=== PATIENT | female | born 1940 | race Caucasian/White ===

== ENCOUNTER 2018-03-03 09:46 | Inpatient (IN) ==
[~2018-03-03 09:46] MED LIST: ASPIRIN 325 MG TABLET PO ONE; DIAZEPAM 5 MG TABLET PO ONE; MAGNESIUM SULF RIDER 2 GM in PREMIX 1 EACH IV PRN; diphenhydrAMINE CAP 25 MG CAPSULE PO ONE
[2018-03-03] MEDS ORDERED: ASPIRIN 325 MG TABLET ONE (10:33)
[2018-03-03] MEDS ORDERED: diphenhydrAMINE CAP 25 MG CAPSULE ONE (10:33)
[2018-03-03] MEDS ORDERED: DIAZEPAM 5 MG TABLET ONE (10:34)
[2018-03-03] MEDS: SODIUM CHLORIDE 0.9% 1,000 ML IV SCH ×3 (10:36→23:00)
[2018-03-03] MEDS ORDERED: LIDOCAINE 1% 20 ML VIAL ONE (15:03)
[2018-03-03] MEDS ORDERED: HYDROmorphone 2 MG/1 ML VIAL ONE (15:10)
[2018-03-03] MEDS ORDERED: MIDAZOLAM 2 MG/2 ML VIAL ONE (15:10)
[2018-03-03] MEDS ORDERED: VERAPAMIL 5 MG/2 ML VIAL ONE (15:16)
[2018-03-03] MEDS ORDERED: NITROGLYCERIN DRIP 50 MG/250 ML BOTTLE IV ONE (15:16)
[2018-03-03] MEDS ORDERED: ENOXAPARIN 60 MG/0.6 ML SYRINGE ONE (15:18)
[2018-03-03] MEDS ORDERED: NITROGLYCERIN SL 0.4 MG TABLET SL PRN (15:44)
[2018-03-03] MEDS ORDERED: ONDANSETRON 4 MG/2 ML VIAL IV PRN (15:44)
[2018-03-03] MEDS ORDERED: ACETAMINOPHEN 325 MG TABLET PO PRN (15:44)
[2018-03-03] MEDS ORDERED: ZALEPLON 5 MG CAPSULE PO PRN (21:00)
[2018-03-03] MEDS: SIMVASTATIN 40 MG TABLET PO SCH (21:31)
[2018-03-03] MEDS: CARVEDILOL 3.125 MG TABLET PO SCH (21:31)
[2018-03-04 04:12] LABS: Basophils # 0.1 10*3/uL (0.0-0.2); Basophils % 0.9 % (0.0-0.8); Eosinophils # 0.2 10*3/uL (0.0-0.87); Eosinophils % 4.4 % (0.00-10.9); Hematocrit 36.6 VOL% (35.7-47.0); Hemoglobin 12.1 GM/DL (12.0-16.0); Immature Granulocytes % 0.2 %; Immature Granulocytes Absolute 0.01 #; Lymphocytes % 36.2 % (21.3-54.2); Mean Corpuscular HGB Conc 33.1 GM/DL (32-36); Mean Corpuscular Hemoglobin 30 PG (27-34); Mean Platelet Volume 10.1 FL (9.6-12.0); Monocytes # 0.7 10*3/uL (0.11-0.8); Monocytes % 13.3 % (1.7-12.7); Neutrophils # 2.4 10*3/uL (1.4-7.4); Platelet Count 323 T/CUMM (130-400); Red Blood Count 4.02 MC/CUMM (3.8-5.5); Red Cell Distribution Width 12.7 % (9.3-17.3); White Blood Count 5.4 T/CUMM (4-12)
[2018-03-04 04:38] LABS: Blood Urea Nitrogen 11 MG/DL (7-18); Calcium 8.2 MG/DL (8.5-10.1); Glucose 97 MG/DL (74-106); Osmolality,Calculated 277.4 MOS/KG (273-304); Potassium 3.3 MMOL/L (3.5-5.1); Sodium 140 MMOL/L (136-145)
[2018-03-04 04:40] LABS: Troponin I 0.071 NG/ML (0.00-0.045)
[2018-03-04] MEDS: SODIUM CHLORIDE 0.9% 1,000 ML IV SCH (05:47)
[2018-03-04] MEDS: POTASSIUM CHLORIDE RIDER 10 MEQ in PREMIX 1 EACH IV PRN ×2 (06:50→09:10)
[2018-03-04] MEDS ORDERED: ASPIRIN CHEW 81 MG TABLET PO SCH (09:00)
[2018-03-04] MEDS: PANTOPRAZOLE 40 MG TABLET PO SCH (09:58)
[2018-03-04] MEDS: SERTRALINE 50 MG TABLET PO SCH (09:58)
[2018-03-04] MEDS: CARVEDILOL 3.125 MG TABLET PO SCH ×2 (09:58→16:50)
[2018-03-04] MEDS: amLODIPine 5 MG TABLET PO SCH (09:58)
[2018-03-04] MEDS: ISOSORBIDE MONONITRATE 30 MG TABLET PO SCH (09:59)
[2018-03-04] MEDS: ENOXAPARIN 40 MG/0.4 ML SYRINGE SUBCUT SCH (11:57)
[2018-03-04] MEDS ORDERED: ASPIRIN CHEW 81 MG TABLET PO ONE (17:09)
[2018-03-04] MEDS ORDERED: POTASSIUM CHLORIDE 20 MEQ PACK PO ONE (17:16)
[2018-03-04] MEDS ORDERED: ENOXAPARIN 40 MG/0.4 ML SYRINGE SUBCUT SCH (21:00)
[2018-03-04] MEDS: SIMVASTATIN 40 MG TABLET PO SCH (21:45)
[2018-03-05 05:19] LABS: Albumin 2.8 G/DL (3.4-5.0); Calcium 8.5 MG/DL (8.5-10.1); Osmolality,Calculated 282.3 MOS/KG (273-304); Total Protein 6.4 G/DL (6.4-8.3)
[2018-03-05] MEDS: SERTRALINE 50 MG TABLET PO SCH (09:43)
[2018-03-05] MEDS: ISOSORBIDE MONONITRATE 30 MG TABLET PO SCH (09:44)
[2018-03-05] MEDS: PANTOPRAZOLE 40 MG TABLET PO SCH (09:44)
[2018-03-05] MEDS: ASPIRIN CHEW 81 MG TABLET PO SCH (09:44)
[2018-03-05] MEDS: CARVEDILOL 3.125 MG TABLET PO SCH ×2 (09:44→16:30)
[2018-03-05] MEDS: amLODIPine 5 MG TABLET PO SCH (09:44)
[2018-03-05] MEDS: ENOXAPARIN 40 MG/0.4 ML SYRINGE SUBCUT SCH (11:50)
[2018-03-05] MEDS: SIMVASTATIN 40 MG TABLET PO SCH (19:59)
[2018-03-05] MEDS: ACETAMINOPHEN 325 MG TABLET PO SCH (22:48)
[2018-03-06] MEDS: PANTOPRAZOLE 40 MG TABLET PO SCH (08:38)
[2018-03-06] MEDS: ASPIRIN CHEW 81 MG TABLET PO SCH (08:38)
[2018-03-06] MEDS: ISOSORBIDE MONONITRATE 30 MG TABLET PO SCH (08:38)
[2018-03-06] MEDS: ACETAMINOPHEN 325 MG TABLET PO SCH ×2 (08:39→21:20)
[2018-03-06] MEDS: SERTRALINE 50 MG TABLET PO SCH (08:39)
[2018-03-06] MEDS: amLODIPine 5 MG TABLET PO SCH (08:39)
[2018-03-06] MEDS: CARVEDILOL 3.125 MG TABLET PO SCH ×2 (08:39→16:39)
[2018-03-06] MEDS: EZETIMIBE 10 MG TABLET PO SCH (12:31)
[2018-03-06] MEDS: ENOXAPARIN 40 MG/0.4 ML SYRINGE SUBCUT SCH (12:31)
[2018-03-06] MEDS ORDERED: MAGNESIUM HYDROXIDE SUSP 30 ML UDCUP PO PRN (18:23)
[2018-03-06] MEDS: SIMVASTATIN 40 MG TABLET PO SCH (21:20)
[2018-03-07 05:15] LABS: Basophils # 0.1 10*3/uL (0.0-0.2); Eosinophils # 0.3 10*3/uL (0.0-0.87); Eosinophils % 5.7 % (0.00-10.9); Hematocrit 39.7 VOL% (35.7-47.0); Immature Granulocytes % 0.2 %; Immature Granulocytes Absolute 0.01 #; Lymphocytes # 1.9 10*3/uL (1.4-4.0); Mean Corpuscular HGB Conc 32.7 GM/DL (32-36); Mean Corpuscular Hemoglobin 30 PG (27-34); Mean Corpuscular Volume 92.3 FL (87-102); Mean Platelet Volume 10.2 FL (9.6-12.0); Monocytes # 0.7 10*3/uL (0.11-0.8); Monocytes % 13.6 % (1.7-12.7); Neutrophils # 2.2 10*3/uL (1.4-7.4); Neutrophils % 42.5 % (38.7-73.9); Platelet Count 353 T/CUMM (130-400); Red Cell Distribution Width 12.8 % (9.3-17.3); White Blood Count 5.2 T/CUMM (4-12)
[2018-03-07 05:23] LABS: Calcium 8.7 MG/DL (8.5-10.1); Osmolality,Calculated 280.4 MOS/KG (273-304); Potassium 3.9 MMOL/L (3.5-5.1)
[2018-03-07] MEDS ORDERED: CEFUROXIME INJ 1,500 MG in SYRINGE 1 EACH IV ONE (07:49)
[2018-03-07] MEDS ORDERED: DEXTROSE 50% 25 GM/50 ML SYRINGE IV PRN (07:49)
[2018-03-07] MEDS ORDERED: GLUCAGON 1 MG VIAL IM PRN (07:49)
[2018-03-07] MEDS: ASPIRIN CHEW 81 MG TABLET PO SCH (08:52)
[2018-03-07] MEDS: EZETIMIBE 10 MG TABLET PO SCH (08:52)
[2018-03-07] MEDS: ISOSORBIDE MONONITRATE 30 MG TABLET PO SCH (08:53)
[2018-03-07] MEDS: SERTRALINE 50 MG TABLET PO SCH (08:53)
[2018-03-07] MEDS: LOSARTAN 25 MG TABLET PO SCH (08:53)
[2018-03-07] MEDS: CHLORHEXIDINE 0.12% ORAL RINSE 60 ML BOTTLE SWISH/SPIT SCH ×2 (08:53→21:50)
[2018-03-07] MEDS: CARVEDILOL 3.125 MG TABLET PO SCH ×2 (08:53→17:30)
[2018-03-07] MEDS: ACETAMINOPHEN 325 MG TABLET PO SCH ×2 (08:53→21:50)
[2018-03-07] MEDS: PANTOPRAZOLE 40 MG TABLET PO SCH (08:53)
[2018-03-07] MEDS: CHLORHEXIDINE 4% SOLN 118 ML BOTTLE TOP SCH ×3 (15:08→21:50)
[2018-03-07] MEDS: SIMVASTATIN 40 MG TABLET PO SCH (21:50)
[2018-03-08] MEDS: CHLORHEXIDINE 4% SOLN 118 ML BOTTLE TOP SCH (04:00)
[2018-03-08] MEDS ORDERED: VANCOMYCIN 1,000 MG VIAL ONE (04:42)
[2018-03-08] MEDS ORDERED: PAPAVERINE 60 MG/2 ML VIAL ONE (04:42)
[2018-03-08 04:44] LABS: Basophils % 0.7 % (0.0-0.8); Eosinophils # 0.3 10*3/uL (0.0-0.87); Eosinophils % 5.4 % (0.00-10.9); Hemoglobin 13.1 GM/DL (12.0-16.0); Immature Granulocytes % 0.2 %; Immature Granulocytes Absolute 0.01 #; Lymphocytes # 2.2 10*3/uL (1.4-4.0); Lymphocytes % 40.4 % (21.3-54.2); Mean Corpuscular HGB Conc 32.8 GM/DL (32-36); Mean Corpuscular Hemoglobin 30 PG (27-34); Mean Corpuscular Volume 92.6 FL (87-102); Mean Platelet Volume 10.5 FL (9.6-12.0); Monocytes # 0.8 10*3/uL (0.11-0.8); Monocytes % 13.5 % (1.7-12.7); Neutrophils # 2.2 10*3/uL (1.4-7.4); Neutrophils % 39.8 % (38.7-73.9); Platelet Count 318 T/CUMM (130-400); Red Blood Count 4.32 MC/CUMM (3.8-5.5); Red Cell Distribution Width 12.8 % (9.3-17.3); White Blood Count 5.5 T/CUMM (4-12)
[2018-03-08] MEDS ORDERED: CEFUROXIME INJ 1,500 MG in SYRINGE 1 EACH IV ONE (05:00)
[2018-03-08] MEDS ORDERED: LORazepam 1 MG TABLET PO ONE (05:19)
[2018-03-08 05:23] LABS: Calcium 8.5 MG/DL (8.5-10.1); Osmolality,Calculated 280.4 MOS/KG (273-304); Potassium 4.3 MMOL/L (3.5-5.1)
[2018-03-08] MEDS ORDERED: CALCIUM CHLORIDE 1,000 MG/10 ML VIAL IV ONE (05:31)
[2018-03-08] MEDS ORDERED: HEPARIN/NACL 0.9% 2 UNITS/ML 500 ML IV ONE (05:31)
[2018-03-08] MEDS ORDERED: PHENYLEPHRINE DRIP 20 MG/250 ML PREMIX IV ONE (05:31)
[2018-03-08] MEDS ORDERED: ETOMIDATE 40 MG/20 ML VIAL IV ONE (05:32)
[2018-03-08] MEDS ORDERED: NITROGLYCERIN DRIP 50 MG/250 ML BOTTLE IV ONE (05:32)
[2018-03-08] MEDS ORDERED: SUFentanil 250 MCG/5 ML AMP ONE (05:32)
[2018-03-08] MEDS ORDERED: MIDAZOLAM 10 MG/2 ML VIAL ONE (05:32)
[2018-03-08] MEDS ORDERED: VECURONIUM 10 MG VIAL IV ONE (05:32)
[2018-03-08] MEDS: LOSARTAN 25 MG TABLET PO SCH ×2 (05:33→10:58)
[2018-03-08] MEDS ORDERED: LACTATED RINGERS 1,000 ML IV ONE ×2 (05:33→12:26)
[2018-03-08] MEDS ORDERED: SODIUM CHLORIDE 0.9% 100 ML IV ONE (05:33)
[2018-03-08] MEDS ORDERED: SODIUM CHLORIDE 0.9% 250 ML IV ONE ×2 (05:33→12:26)
[2018-03-08] MEDS ORDERED: AMINOCAPROIC ACID 5,000 MG/20 ML VIAL IV ONE (05:33)
[2018-03-08] MEDS ORDERED: SODIUM CHLORIDE 0.9% 1,000 ML IV ONE (05:33)
[2018-03-08] MEDS: CARVEDILOL 3.125 MG TABLET PO SCH ×2 (05:33→10:57)
[2018-03-08] MEDS: CHLORHEXIDINE 0.12% ORAL RINSE 60 ML BOTTLE SWISH/SPIT SCH ×2 (05:34→10:58)
[2018-03-08] MEDS: ISOSORBIDE MONONITRATE 30 MG TABLET PO SCH ×2 (05:34→10:58)
[2018-03-08 07:48] LABS: ABG Base Excess 1.6 MMOL/L (-2.5-2.5); ABG HCO3 25.8 MMOL/L (20-26); ABG PCO2 35.6 MM HG (35-48); ABG PH 7.456 (7.35-7.45); ABG TCO2 22.1 MMOL/L (23-27); Glucose Heart Surgery 110 MG/DL (74-106); Hematocrit Heart Surgery 37.4 PERCENT (37-47); Hemoglobin Heart Surgery 12.2 G/DL (12.0-16.0); Ionized Calcium Arterial 1.14 MMOL/L (1.21-1.46); PCO2 Patient Temp Arterial 35.6 MMHG; PH Patient Temp Arterial 7.456; Patient Temperature 37 CELCIUS; Potassium Heart/CVR 3.9 MMOL/L (3.5-5.1); Sodium Heart/CVR 140 MMOL/L (135-145)
[2018-03-08 08:59] LABS: Hematocrit Heart Surgery 24.6 PERCENT (37-47); Hemoglobin Heart Surgery 7.9 G/DL (12.0-16.0); PCO2 Patient Temp Venous 30.2 MM HG; PH Patient Temp Venous 7.526; PO2 Patient Temp Venous 35.6 MM HG; Potassium Heart/CVR 4.7 MMOL/L (3.5-5.1); VBG Base Excess 2.6 MEQ/L (0-4); VBG HCO3 26.5 MEQ/L (24-28); VBG Oxygen Saturation 82.2 %; VBG PCO2 33.3 MMHG (41-51); VBG PH 7.496
[2018-03-08 09:08] LABS: Amorphous Crystals,Urine Moderate /HPF (Few); Apearance,Urine CLEAR (Clear); Bacteria,Urine Occasional /HPF (Few); Bilirubin,Urine Negative (Negative); Blood, Urine Negative (Negative); Glucose,Urine (UA) Negative (Negative); Ketones,Urine Negative (Negative); Nitrite,Urine Negative (Negative); Protein,Urine Negative; RBC,Urine <1 /HPF (0-4); Urine Color Yellow (Yellow); Urine Urobilinogen < 2.0 EU/DL (0.2-1.0)
[2018-03-08 09:32] LABS: Hematocrit Heart Surgery 27.5 PERCENT (37-47); Hemoglobin Heart Surgery 8.9 G/DL (12.0-16.0); PCO2 Patient Temp Venous 26.6 MM HG; PH Patient Temp Venous 7.572; PO2 Patient Temp Venous 31.7 MM HG; VBG HCO3 26.9 MEQ/L (24-28); VBG Oxygen Saturation 81.4 %; VBG PCO2 30.8 MMHG (41-51); VBG PH 7.526; VBG PO2 39.1 MMHG (17-40)
[2018-03-08] MEDS ORDERED: HEPARIN 10,000 UNIT/10 ML VIAL ONE (10:30)
[2018-03-08] MEDS ORDERED: ALBUMIN 25% 25 GM/100 ML VIAL IV ONE (10:30)
[2018-03-08] MEDS ORDERED: PROTAMINE SULFATE 250 MG/25 ML VIAL IV ONE (10:30)
[2018-03-08] MEDS ORDERED: SODIUM BICARBONATE 50 MEQ/50 ML SYRINGE IV ONE (10:30)
[2018-03-08] MEDS ORDERED: methylPREDNISolone SOD SUC 1,000 MG/8 ML VIAL ONE (10:30)
[2018-03-08] MEDS ORDERED: MANNITOL 100 GM/500 ML BAG IV ONE (10:30)
[2018-03-08] MEDS ORDERED: DEXTROSE 5% KCL 20 MEQ 20 MEQ/1,000 ML BAG IV ONE (10:30)
[2018-03-08] MEDS ORDERED: FUROSEMIDE 20 MG/2 ML VIAL ONE (10:30)
[2018-03-08 10:33] LABS: ABG Base Excess -0.5 MMOL/L (-2.5-2.5); ABG Oxygen Saturation 99.6 % (95-100); ABG PCO2 34.2 MM HG (35-48); ABG TCO2 21.1 MMOL/L (23-27); Glucose Heart Surgery 205 MG/DL (74-106); Hemoglobin Heart Surgery 9.7 G/DL (12.0-16.0); Ionized Calcium Arterial 1.25 MMOL/L (1.21-1.46); PCO2 Patient Temp Arterial 34.2 MMHG; Patient Temperature 37 CELCIUS; Potassium Heart/CVR 3.7 MMOL/L (3.5-5.1); Sodium Heart/CVR 137 MMOL/L (135-145)
[2018-03-08] MEDS ORDERED: THROMBIN TOPICAL (RECOMBINANT) 5,000 UNIT VIAL TOP ONE (10:48)
[2018-03-08] MEDS: SODIUM CHLORIDE 0.9% 1,000 ML IV SCH ×2 (10:56→10:57)
[2018-03-08] MEDS: ASPIRIN CHEW 81 MG TABLET PO SCH (10:57)
[2018-03-08] MEDS: PANTOPRAZOLE 40 MG TABLET PO SCH (10:58)
[2018-03-08] MEDS: EZETIMIBE 10 MG TABLET PO SCH (10:59)
[2018-03-08] MEDS: SERTRALINE 50 MG TABLET PO SCH (10:59)
[2018-03-08] MEDS: ACETAMINOPHEN 325 MG TABLET PO SCH (10:59)
[2018-03-08] MEDS ORDERED: PHENYLEPHRINE DRIP 40 MG/250 ML PREMIX IV ONE (11:25)
[2018-03-08] MEDS ORDERED: POTASSIUM CHLORIDE RIDER 100 ML IV ONE (11:25)
[2018-03-08] MEDS: LACTATED RINGERS 1,000 ML IV PRN ×2 (12:00→14:40)
[2018-03-08] MEDS ORDERED: PROTAMINE SULFATE 50 MG/5 ML VIAL IV ONE ×2 (12:10→12:15)
[2018-03-08] MEDS ORDERED: AMIODARONE 150 MG/3 ML VIAL ONE (12:25)
[2018-03-08] MEDS ORDERED: SEVOFLURANE 1 UNIT/15 MINUTE INH ONE (12:25)
[2018-03-08] MEDS ORDERED: GLYCOPYRROLATE 0.4 MG/2 ML VIAL ONE (12:26)
[2018-03-08] MEDS ORDERED: PHENYLEPHRINE 1 MG/10 ML SYRINGE IV ONE (12:26)
[2018-03-08] MEDS ORDERED: SODIUM CHLORIDE 0.45% 1,000 ML IV SCH ×2 (12:36)
[2018-03-08] MEDS ORDERED: MAGNESIUM SULF RIDER 2 GM in PREMIX 1 EACH IV PRN (12:36)
[2018-03-08] MEDS ORDERED: LACTATED RINGERS 250 ML IV PRN (12:36)
[2018-03-08] MEDS ORDERED: MIDAZOLAM 10 MG/2 ML VIAL IV PRN (12:36)
[2018-03-08] MEDS ORDERED: INSULIN REGULAR 100 UNIT/ML IV ONE (12:36)
[2018-03-08] MEDS ORDERED: VECURONIUM 10 MG VIAL IV PRN ×2 (12:36)
[2018-03-08] MEDS ORDERED: INSULIN REGULAR DRIP 100 ML IV SCH (12:36)
[2018-03-08] MEDS ORDERED: MORPHINE 10 MG/1 ML VIAL IV PRN (12:36)
[2018-03-08] MEDS ORDERED: ONDANSETRON 4 MG/2 ML VIAL IV PRN (12:36)
[2018-03-08] MEDS ORDERED: INSULIN REGULAR 100 UNIT/ML IV PRN (12:36)
[2018-03-08] MEDS ORDERED: NITROPRUSSIDE 100 MG in DEXTROSE 5% 250 ML IV PRN (12:36)
[2018-03-08] MEDS ORDERED: DEXTROSE 50% 25 GM/50 ML SYRINGE IV PRN ×2 (12:36)
[2018-03-08] MEDS ORDERED: MORPHINE 4 MG/1 ML VIAL IV PRN (12:36)
[2018-03-08] MEDS ORDERED: MAGNESIUM SULF RIDER 4 GM in PREMIX 1 EACH IV PRN (12:36)
[2018-03-08] MEDS ORDERED: MIDAZOLAM 2 MG/2 ML VIAL IV PRN (12:36)
[2018-03-08] MEDS ORDERED: ACETAMINOPHEN 650 MG SUPP RECTAL PRN (12:36)
[2018-03-08 12:41] LABS: ABG HCO3 23.6 MMOL/L (20-26); ABG Oxygen Saturation 98.2 % (95-100); ABG PCO2 31.7 MM HG (35-48); ABG PH 7.453 (7.35-7.45); ABG PO2 96.1 MM HG (80-95); ABG TCO2 19.9 MMOL/L (23-27); Glucose Heart Surgery 242 MG/DL (74-106); Hematocrit Heart Surgery 33.3 PERCENT (37-47); Hemoglobin Heart Surgery 10.8 G/DL (12.0-16.0); Potassium Heart/CVR 3.7 MMOL/L (3.5-5.1)
[2018-03-08 13:06] LABS: Bilirubin,Total 1.2 MG/DL (0.2-1.0); Calcium 8.2 MG/DL (8.5-10.1); Osmolality,Calculated 287.4 MOS/KG (273-304); Potassium 4.1 MMOL/L (3.5-5.1); Total Protein 5.6 G/DL (6.4-8.3)
[2018-03-08 13:07] LABS: CKMB % 9.5 %
[2018-03-08 13:10] LABS: Basophils # 0.1 10*3/uL (0.0-0.2); Basophils % 0.3 % (0.0-0.8); Eosinophils # 0.2 10*3/uL (0.0-0.87); Hematocrit 32.1 VOL% (35.7-47.0); Immature Granulocytes % 0.8 %; Immature Granulocytes Absolute 0.15 #; Lymphocytes # 2.8 10*3/uL (1.4-4.0); Lymphocytes % 15.2 % (21.3-54.2); Mean Corpuscular Hemoglobin 30 PG (27-34); Mean Platelet Volume 10.8 FL (9.6-12.0); Monocytes # 1.1 10*3/uL (0.11-0.8); Monocytes % 6.1 % (1.7-12.7); Neutrophils # 14.3 10*3/uL (1.4-7.4); Neutrophils % 76.6 % (38.7-73.9); Red Blood Count 3.49 MC/CUMM (3.8-5.5)
[2018-03-08 13:12] LABS: Troponin I 4.59 NG/ML (0.00-0.045)
[2018-03-08] MEDS ORDERED: ePHEDrine 50 MG/ML AMP ONE (13:12)
[2018-03-08 13:16] LABS: INR 1.3; Partial Thromboplastin Time 26.2 SECS (0-40)
[2018-03-08 13:19] LABS: Hemoglobin 10.6 GM/DL (12.0-16.0); White Blood Count 18.6 T/CUMM (4-12)
[2018-03-08 13:20] LABS: Platelet Count 374 T/CUMM (130-400)
[2018-03-08 14:04] LABS: ABG Base Excess -0.7 MMOL/L (-2.5-2.5); ABG HCO3 23.9 MMOL/L (20-26); ABG PCO2 34.3 MM HG (35-48); ABG PH 7.435 (7.35-7.45); ABG TCO2 21.1 MMOL/L (23-27); Glucose Heart Surgery 219 MG/DL (74-106); Hematocrit Heart Surgery 29.6 PERCENT (37-47); Hemoglobin Heart Surgery 9.6 G/DL (12.0-16.0); Potassium Heart/CVR 3.3 MMOL/L (3.5-5.1)
[2018-03-08] MEDS: POTASSIUM CHLORIDE RIDER 20 MEQ in PREMIX 1 EACH IV PRN ×2 (14:31→20:15)
[2018-03-08] MEDS: ALBUMIN 5% 12.5 GM in PREMIX 1 EACH IV PRN ×3 (14:33→16:06)
[2018-03-08] MEDS: PHENYLEPHRINE DRIP 40 MG/250 ML PREMIX IV PRN (14:33)
[2018-03-08] MEDS: KETOROLAC 30 MG/1 ML VIAL IV SCH ×2 (14:40→18:58)
[2018-03-08 15:59] LABS: ABG HCO3 22.8 MMOL/L (20-26); ABG Oxygen Saturation 98.4 % (95-100); ABG PCO2 37.9 MM HG (35-48); ABG PH 7.386 (7.35-7.45); ABG TCO2 20.6 MMOL/L (23-27); Glucose Heart Surgery 163 MG/DL (74-106); Hematocrit Heart Surgery 31.8 PERCENT (37-47); Hemoglobin Heart Surgery 10.3 G/DL (12.0-16.0); Potassium Heart/CVR 3.6 MMOL/L (3.5-5.1)
[2018-03-08 19:20] LABS: ABG Base Excess -0.9 MMOL/L (-2.5-2.5); ABG HCO3 23.6 MMOL/L (20-26); ABG Oxygen Saturation 98.8 % (95-100); ABG PCO2 40.6 MM HG (35-48); ABG PH 7.381 (7.35-7.45); ABG TCO2 21.9 MMOL/L (23-27); Glucose Heart Surgery 126 MG/DL (74-106); Potassium Heart/CVR 3.5 MMOL/L (3.5-5.1)
[2018-03-08] MEDS: POTASSIUM CHLORIDE RIDER 10 MEQ in PREMIX 1 EACH IV PRN (19:41)
[2018-03-08] MEDS: CEFUROXIME INJ 1,500 MG in SYRINGE 1 EACH IV SCH (20:36)
[2018-03-08] MEDS ORDERED: CHLORHEXIDINE 0.12% ORAL RINSE 60 ML BOTTLE SWISH/SPIT SCH (21:00)
[2018-03-08 21:29] LABS: CKMB % 12.4 %
[2018-03-08 21:32] LABS: Troponin I 12.8 NG/ML (0.00-0.045)
[2018-03-08 23:40] LABS: ABG Base Excess -2.1 MMOL/L (-2.5-2.5); ABG HCO3 22.6 MMOL/L (20-26); ABG PCO2 39.1 MM HG (35-48); ABG PH 7.374 (7.35-7.45); ABG TCO2 20.7 MMOL/L (23-27); Glucose Heart Surgery 191 MG/DL (74-106); Hematocrit Heart Surgery 32.3 PERCENT (37-47); Hemoglobin Heart Surgery 10.5 G/DL (12.0-16.0); Potassium Heart/CVR 3.7 MMOL/L (3.5-5.1)
[2018-03-08] MEDS ORDERED: DOBUTamine 500 MG/250 ML PREMIX IV SCH (23:45)
[2018-03-08] MEDS ORDERED: FUROSEMIDE 40 MG/4 ML VIAL IV ONE (23:59)
[2018-03-09] MEDS: KETOROLAC 30 MG/1 ML VIAL IV SCH ×2 (00:18→06:52)
[2018-03-09] MEDS: INSULIN REGULAR 100 UNIT/ML SUBCUT SCH ×3 (00:18→07:52)
[2018-03-09] MEDS: PHENYLEPHRINE DRIP 40 MG/250 ML PREMIX IV PRN (00:42)
[2018-03-09] MEDS: POTASSIUM CHLORIDE RIDER 10 MEQ in PREMIX 1 EACH IV PRN ×2 (00:45→05:03)
[2018-03-09] MEDS: ALBUMIN 5% 12.5 GM in PREMIX 1 EACH IV PRN ×2 (01:16→08:38)
[2018-03-09 03:29] LABS: ABG Base Excess -2.5 MMOL/L (-2.5-2.5); ABG HCO3 22.3 MMOL/L (20-26); ABG Oxygen Saturation 98.7 % (95-100); ABG PCO2 37.1 MM HG (35-48); ABG PH 7.384 (7.35-7.45); ABG TCO2 20.3 MMOL/L (23-27); Glucose Heart Surgery 178 MG/DL (74-106); Hematocrit Heart Surgery 29.4 PERCENT (37-47); Hemoglobin Heart Surgery 9.5 G/DL (12.0-16.0); Potassium Heart/CVR 3.7 MMOL/L (3.5-5.1)
[2018-03-09 03:38] LABS: Basophils % 0.1 % (0.0-0.8); Hematocrit 26.8 VOL% (35.7-47.0); Hemoglobin 8.8 GM/DL (12.0-16.0); Immature Granulocytes % 0.4 %; Immature Granulocytes Absolute 0.05 #; Lymphocytes # 1.1 10*3/uL (1.4-4.0); Lymphocytes % 7.9 % (21.3-54.2); Mean Corpuscular HGB Conc 32.8 GM/DL (32-36); Mean Corpuscular Hemoglobin 31 PG (27-34); Mean Corpuscular Volume 93.1 FL (87-102); Mean Platelet Volume 10.7 FL (9.6-12.0); Monocytes # 0.8 10*3/uL (0.11-0.8); Monocytes % 5.7 % (1.7-12.7); Neutrophils # 11.5 10*3/uL (1.4-7.4); Neutrophils % 85.9 % (38.7-73.9); Platelet Count 225 T/CUMM (130-400); Red Blood Count 2.88 MC/CUMM (3.8-5.5); Red Cell Distribution Width 13.5 % (9.3-17.3); White Blood Count 13.4 T/CUMM (4-12)
[2018-03-09 03:59] LABS: CKMB % 14.3 %
[2018-03-09 04:00] LABS: ABG Base Excess -2.5 MMOL/L (-2.5-2.5); ABG HCO3 22.9 MMOL/L (20-26); ABG Oxygen Saturation 96.7 % (95-100); ABG PH 7.355 (7.35-7.45); ABG PO2 102.2 MM HG (80-95); ABG TCO2 24.2 MMOL/L (23-27); Glucose Heart Surgery 178 MG/DL (74-106); Hemoglobin Heart Surgery 9.8 G/DL (12.0-16.0); Potassium Heart/CVR 3.7 MMOL/L (3.5-5.1)
[2018-03-09 04:04] LABS: Albumin 3.9 G/DL (3.4-5.0); Bilirubin,Direct 0.58 MG/DL (0.0-0.20); Bilirubin,Total 1.1 MG/DL (0.2-1.0); Potassium 3.7 MMOL/L (3.5-5.1); Total Protein 6.1 G/DL (6.4-8.3)
[2018-03-09 04:07] LABS: Troponin I 18.2 NG/ML (0.00-0.045)
[2018-03-09] MEDS: POTASSIUM CHLORIDE RIDER 20 MEQ in PREMIX 1 EACH IV PRN ×3 (04:30→07:56)
[2018-03-09 07:14] LABS: ABG Base Excess -3.2 MMOL/L (-2.5-2.5); ABG HCO3 21.7 MMOL/L (20-26); ABG Oxygen Saturation 97.4 % (95-100); ABG PCO2 40.9 MM HG (35-48); ABG PH 7.344 (7.35-7.45); ABG PO2 96.6 MM HG (80-95); ABG TCO2 20.4 MMOL/L (23-27); Glucose Heart Surgery 192 MG/DL (74-106); Hematocrit Heart Surgery 30.6 PERCENT (37-47); Hemoglobin Heart Surgery 9.9 G/DL (12.0-16.0); Potassium Heart/CVR 4.1 MMOL/L (3.5-5.1)
[2018-03-09] MEDS: CEFUROXIME INJ 1,500 MG in SYRINGE 1 EACH IV SCH (07:52)
[2018-03-09 08:35] LABS: ABG Base Excess -2.3 MMOL/L (-2.5-2.5); ABG Oxygen Saturation 96.4 % (95-100); ABG PCO2 41.6 MM HG (35-48); ABG PH 7.361 (7.35-7.45); ABG PO2 97.2 MM HG (80-95); ABG TCO2 24.3 MMOL/L (23-27); Glucose Heart Surgery 182 MG/DL (74-106); Hemoglobin Heart Surgery 10.4 G/DL (12.0-16.0)
[2018-03-09] MEDS ORDERED: NITROGLYCERIN DRIP 50 MG/250 ML BOTTLE IV ONE (09:13)
[2018-03-09] MEDS ORDERED: NITROGLYCERIN DRIP 50 MG/250 ML BOTTLE IV PRN (09:32)
[2018-03-09 09:35] LABS: ABG Base Excess -3.2 MMOL/L (-2.5-2.5); ABG HCO3 22.1 MMOL/L (20-26); ABG Oxygen Saturation 94.6 % (95-100); ABG PCO2 40.7 MM HG (35-48); ABG PH 7.353 (7.35-7.45); ABG PO2 81.8 MM HG (80-95); ABG TCO2 23.4 MMOL/L (23-27); Glucose Heart Surgery 184 MG/DL (74-106); Potassium Heart/CVR 4.8 MMOL/L (3.5-5.1)
[2018-03-09] MEDS ORDERED: EPINEPHrine 1 MG/10 ML SYRINGE IV ONE ×2 (10:00→10:33)
[2018-03-09 10:12] VITALS: BP 88/48
[2018-03-09] MEDS ORDERED: SUCCINYLCHOLINE 200 MG/10 ML VIAL ONE (10:44)
[2018-03-09] MEDS ORDERED: ETOMIDATE 40 MG/20 ML VIAL IV ONE (10:44)
[2018-03-09] MEDS: CALCIUM CHLORIDE 1,000 MG/10 ML SYRINGE IV PRN ×2 (11:37→14:23)
== END 2018-03-09 10:48 | disposition expired | DRG 233 ==
LOC: N.CL 09:46 → N.TELEN 09:46 → N.CL 09:53 → N.TELEN 16:08 → N.CVR 03-08 07:09
PROVIDERS: ADMIT Internal Medicine Cardiovascular Disease; ATTEND Internal Medicine Cardiovascular Disease
PROC: CLCCHCL (ICD-10-PCS; 2018-03-03 13:15)